=== PATIENT | female | born 1975 | race Caucasian/White ===

== ENCOUNTER 2023-10-31 15:25 | Emergency (ER) | payer BC, SELFPAY ==
[2023-10-31 15:31] VITALS: BP 140/103; PULSE 104; RESP 20; TEMP 36.2; O2SAT 100; BMI 23.5
--- NOTE | 2023-10-31 15:37 | CRLHL7_ITS ---
For Patients: As a result of the Century Cures Act, medical imaging exams and procedure reports are released immediately into your electronic medical record. You may view this report before your referring provider. If you have questions, please contact your health care provider. INDICATION: Injury. TECHNIQUE: Three views. FINDINGS: Acute, nondisplaced, non articular fracture distal radial metaphysis. Radiocarpal alignment is anatomic/intact. Mild soft tissue swelling. No acute abnormality of distal ulna. On AP view only, equivocal linear lucency across waist of scaphoid, possible nondisplaced fracture, continued follow-up recommended. CT/MRI recommended if further evaluation is indicated clinically. Dictated by Grzegorz Bergeron MD @ 10/31/2023 4:07:54 PM (Electronically Signed)
[2023-10-31] MEDS: MORPHINE 4 MG/ML INJ IVP (15:47)
--- NOTE | 2023-10-31 16:10 | ED.GENADULT ---
HPI - General Adult General Chief complaint: Extremity Pain/Injury, Upper Stated complaint: broken left wrist Time Seen by Provider: 10/31/23 15:50 History of Present Illness HPI narrative: This 48-year-old female comes in with an injury to her left wrist. She was standing up on a stool to mount balloons for celebration of her 2-year-old grandchild when she lost her balance and fell onto her left outstretched hand. She has pain and swelling of her left wrist. She does not report any other injury. Related Data Previous Rx's Medication Instructions Recorded hydrocodone 5 mg-acetaminophen 325 1 tab PO Q4-6H PRN pain #10 tabs 10/31/23 mg tablet Allergies Allergy/AdvReac Type Severity Reaction Status Date / Time No Known Drug Allergies Allergy Verified 10/31/23 15:33 Review of Systems Status of ROS: Reports: 10 or more systems reviewed and unremarkable except as noted in History and below Narrative: Constitutional: No fevers, no weight gain or loss. Eyes: No discharge. No vision changes. HENT: No congestion, no sore throat, no ear pain. Cardiovascular: No chest pain, no palpitations. Respiratory: No shortness of breath, no wheezes, no cough. Gastrointestinal: No abdominal pain, no vomiting, no diarrhea. Genitourinary: No dysuria, no hematuria. Musculoskeletal: Left wrist injury as described above. Skin: No rashes, no pruritis. Neurological: No dizziness, weakness, sensory change, speech change. Endo/Heme/Allergies: No bruising or bleeding. No polydipsia. Pysch: no suicidality, no anxiety, no insomnia. All other systems reviewed and are negative. Exam Narrative: Exam Narrative: Constitutional: Well-developed, well-nourished, no acute distress. HEENT: Normocephalic, atraumatic. Neck: Normal range of motion. Nontender. Supple. Heart: Intact distal pulses. Lungs: No chest discomfort. No wheezes, rhonchi, or rales. Abdomen: Nontender. Back: Normal range of motion. Extremities: Diffuse swelling of the left wrist. Fingers have normal sensation and range of motion. Skin: Intact. No rash. Warm. No erythema or pallor. Neurologic: No altered sensation. No weakness. Alert and oriented. Psychiatric: No suicidality. No anxiety or depression. No insomnia. Nursing notes and vitals signs are reviewed. Const: Vital Signs, click to edit/add: Vital Signs - 24 hr 10/31/23 15:31 Temperature 97.1 F L Pulse Rate [Pulse Oximeter] 104 H Respiratory Rate 20 Blood Pressure [Ri ght Upper Arm] 140/103 H Pulse Oximetry 100 Oxygen Delivery Me thod Room Air Course Vital Signs Vital signs: Initial Vital Signs Temperature 97.1 F L 10/31/23 15:31 Temperature Source Temporal Artery Scan 10/31/23 15:31 Pulse Rate 104 H 10/31/23 15:31 Pulse Rhythm Regular 10/31/23 15:31 Respiratory Rate 20 10/31/23 15:31 Blood Pressure 140/103 H 10/31/23 15:31 Blood Pressure Mean 115 H 10/31/23 15:31 Blood Pressure Position Sitting 10/31/23 15:31 Pulse Oximetry 100 10/31/23 15:31 Oxygen Delivery Method Room Air 10/31/23 15:31 Vital Signs Temperature 97.1 F L 10/31/23 15:31 Pulse Rate 104 H 10/31/23 15:31 Respiratory Rate 20 10/31/23 15:31 Blood Pressure 140/103 H 10/31/23 15:31 Pulse Oximetry 100 10/31/23 15:31 Oxygen Delivery Method Room Air 10/31/23 15:31 Temperature 97.1 F L 10/31/23 15:31 Pulse Rate 104 H 10/31/23 15:31 Respiratory Rate 20 10/31/23 15:31 Blood Pressure 140/103 H 10/31/23 15:31 Pulse Oximetry 100 10/31/23 15:31 Oxygen Delivery Method Room Air 10/31/23 15:31 Medications Administered Medications: Discontinued Medications Generic Name Dose Route Start Last Admin Trade Name Freq PRN Reason Stop Dose Admin Morphine Sulfate 4 mg 10/31/23 15:36 10/31/23 15:47 Morphine 4 Mg/Ml Inj IVP 10/31/23 15:37 4 mg ONCE ONE Administration Medical Decision Making MDM Narrative Medical decision making narrative: This patient comes in with an injury to her left wrist. X-ray imaging does show a nondisplaced fracture of the distal radius. The patient was placed in an Ortho Glass splint and did receive an Instymed prescription for few tablets of [place] and of prescription from her pharmacy for some more. I advised her to follow-up with orthopedic clinic for further evaluation and treatment. Imaging Data XR L Wrist: Radiologist's impression: Acute, nondisplaced, non articular fracture distal radial metaphysis. Radiocarpal alignment is anatomic/intact. Mild soft tissue swelling. No acute abnormality of distal ulna. Discharge Plan Discharge Clinical Impression: Fracture of wrist Patient Disposition: Home w/ Parent or Adult Condition: Stable Additional Instructions: Wear splint and use medication as needed and directed for pain relief. Follow-up with orthopedic clinic. Call [phone] for appointment. Prescriptions: New hydrocodone-acetaminophen 5-325 mg tablet 1 tab PO Q4-6H PRN (Reason: pain) Qty: 10 0RF Follow Up/Referrals: Kelly Stevens MD [Primary Care Provider] - Stand Alone Forms: [employer] Info Instructions
[2023-10-31 16:22] VITALS: O2SAT 99
== END 2023-10-31 16:48 | disposition home or self-care (01) ==
LOC: ED 16:48
PROVIDERS: Emergency Provider Emergency Medicine Emergency Medical Services; PCP Family Medicine
DX: S52.502A Unspecified fracture of the lower end of left radius, initial encounter for closed fracture (principal); W18.30XA Fall on same level, unspecified, initial encounter
CPT/HCPCS: 29125; 73110; 96374; 99283; 99284; J2270

== ENCOUNTER 2023-11-04 07:35 | Day surgery (SDC) | payer BC, SELFPAY ==
[2023-11-04] MEDS: LACTATED RINGERS 1000 ML 1,000 ML 100 ML IV (07:35)
--- OUTSIDE RECORDS SUMMARY | 2023-11-04 07:37 | XMS_ITS | Clinical Summary ---
Author Name Unknown Organization [employer] [facility] Address [place], [place] [address] Care Team Providers Care Front Office Medical Assistant Name Role Phone Kelly Stevens MD Primary Care Provider Allergies No known active allergies Medications Medication Sig Dispensed Refills Start Date End Date Status oxyCODONE (ROXICODONE) 5 mg immediate release tablet Take 5 mg by mouth every 4 hours if needed for Pain. 0 11/01/2023 Active Active Problems Problem Noted Date Diagnosed Date Fracture of wrist 11/03/2023 Heart murmur 11/03/2023 Prediabetes 11/03/2023 Elevated blood pressure read ing without diagnosis of hypertension 11/03/2023 Tobacco user 11/03/2023 Cystic acne 05/26/2013 Unspecified episodic mood disorder 09/02/2007 Obsessive-compulsive disorders 09/02/2007 Esophageal reflux Abnormal Pap smear of cervix Overview: See 07/27/19 visit note:history of abnormal, never follow up for LEEP 07/27/19 NIL/HPV negative Plan:Pap/HPV due 07/2022 Encounters Date Type Department Care Team Description 11/03/2023 10:50 AM VESSEL SCRAPPER HELPER [place] [facility] [place] [address] [place] [address] Michael Baig MD Preoperative Exam (DOS 11/04/23) 11/03/2023 [place] [facility] [place] [address] [place] [address] Michael Baig MD Results 11/03/2023 Travel 10/31/2023 Orders Only [facility] Scanner 1 scan: (1-Ord) NORTH , XR WRIST LT MIN 3V, 10/31/2023 from Last 3 Months Immunizations Name Administration Dates Next Due Influenza A (H1N1), Inactivated 10/23/2009 Influenza, IIV3 (Age >=3 years) 08/25/2013,08/18,08/18/2011 Td (Age >=7 Years) 02/23/2000 Tdap 07/27/2019 Family History Medical History Relation Name Comments Cancer Father lung Diabetes Father Heart Disease Father stents Other Mother COPD Diabetes Paternal Grandmother Relation Name Status Comments Father (Age 55) lung ca Mother Alive Paternal Grandmother Social History Tobacco Use Types Packs/Day Years Used Date Smoking Tobacco: Every Day Cigarettes 0.9 34 Started: 1989 Smokeless Tobacco: Never Tobacco Cessation:Ready to Q uit: No; Counseling Given: No Alcohol Use Standard Drinks/Week Comments Yes 0 (1 standard drink = 0.6 oz pur e alcohol) Rarely Humiliation, Afraid, Rape, and Kick questionnair e Answer Date Recorded Fear of Current or Ex-Partner No Emotionally Abused No 07/27/2019 Physically Abused No 07/27/2019 Sexually Abused No 07/27/2019 PHQ-2 Answer Date Recorded PHQ-2 Score 0 07/27/2019 [facility] [place] [facility] - Occupational Stress Questionnaire Answer Date Recorded Feeling of Stress Not at all 07/27/2019 Exercise Vital Sign Answer Date Recorde d Days of Exercise per Week 3 days 2018 Minutes of Exercise per Session 40 min 07/27/2019 Social Connections Answer Date Recorded Frequency of Communication with Friends and Fami ly Not on file 11/03/2023 Financial Resource Strain Answer Date R ecorded Difficulty of Paying Living Expenses Not on file 10/25/2021 Difficulty of Paying Living Expenses Not on file 10/25/2021 Sex and Gender Information Value Date Recorded Sex Assigned at Not on file Gender Identity Not on file Sexual Orientation Not on file Obstetrics History Para Term AB IAB SAB Ectopic Multiple Livin g Live Births 5 5 5 5 Date Outcome GA Total Labor Labor/2nd/3rd Weight Sex Delivery Anes PTL Faye A1 A5 Name Cl in Term Term Term Term Term Last Filed Vital Signs Vital Sign Reading Time Taken Comments Blood Pressure 138/82 11/03/2023 11:07 AM VESSEL SCRAPPER HELPER Pulse 70 11/03/2023 11:07 AM VESSEL SCRAPPER HELPER Temperature 36.7 ??C (98 ??F) 11/03/2023 11:07 AM VESSEL SCRAPPER HELPER Respiratory Rate 16 11/19/2018 9:45 AM VESSEL SCRAPPER HELPER Oxygen Saturation 97% 11/03/2023 11:07 AM VESSEL SCRAPPER HELPER Inhaled Oxygen Concentration - - Weight 91.2 kg (201 lb) 11/03/2023 11:07 AM VESSEL SCRAPPER HELPER Height 168.9 cm (5' 6.5) 11/03/2023 11:07 AM CS T Body Mass Index 31.96 11/03/2023 11:07 AM VESSEL SCRAPPER HELPER Plan of Treatment Health Maintenance Due Date Last Done Comments COVID-19 vaccine series (#1) 04/13/1975 Pneumococcal series for age 6-64 (1 of 2 - PCV) 1980 HIV for age 15-65 1989 Hepatitis C screening for ag e 18-79 1992 Colonoscopy through age 75 2019 Mammogram for age 45-75 2019 Depression screening for age 12+ 07/27/2020 07/27/20 19 Pap test for age 21-65 07/27/2022 07/27/2019, 2018 Influenza for age 9-49 06/25/2023 3, 08/18/2012, 08/18/2011, Additional history exists Lipids for age 45-75 07/27/2024 07/27/2019, 11/21/2013, 10/23/2013, Additional history exists BMI (ht and wt on same day) for age 18+ 11/03/2024 11/03/2023, 07/27/2019, 11/19/2018, Additional history exists Tetanus booster 07/27/2029 07/27/2019, 02/23/2000 Tdap Completed 07/27/2019 Procedures Procedure Name Priority Date/Time Associated Diagnosis Comments CBC WITH AUTO DIFFERENTIAL Routine 11/03/2023 11:45 AM VESSEL SCRAPPER HELPER Preop examination HEMOGLOBIN A1C SCREENING Routine 11/03/2023 11:45 AM VESSEL SCRAPPER HELPER Prediabetes BASIC METABOLIC PANEL Routine 11/03/2023 11:45 AM VESSEL SCRAPPER HELPER Preop examination CBC WITH AUTO DIFFERENTIAL Routine 11/03/2023 11:45 AM VESSEL SCRAPPER HELPER Preop examination SCAN-RADIOLOGY REPORT 10/31/2023 12:00 AM VESSEL SCRAPPER HELPER from Last 3 Months Results * CBC WITH AUTO DIFFERENTIAL (11/03/2023 11:45 AM VESSEL SCRAPPER HELPER) WHITE BLOOD COUNT 8.3 4.5 - 11.0 thou/cu mm 11/03/2023 12:15 PM VESSEL SCRAPPER HELPER [facility]LOOD [place] 4.81 4.00 - 5.20 mil/cu mm 11/03/2023 12:[address] [facility] HEMOGLOBIN 14.8 12.0 - 16.0 g/dL 11/03/2023 12:[address] [facility] HEMATOCRIT 46.0 33.0 - 51.0 % 11/03/2023 12:[address] [facility] MCV 96 80 - 100 fL 11/03/2023 12:[address] [facility] MCH 30.8 26.0 - 34.0 pg 11/03/2023 12:[address] [facility] MCHC 32.2 32.0 - 36.0 g/dL 11/03/2023 12:[address] [facility] RDW 14.1 11.5 - 15.5 % 11/03/2023 12:[address] [facility] PLATELET COUNT 212 140 - 440 thou/cu mm 11/03/2023 12:[address] [facility] MPV 9.2 6.5 - 11.0 fL 11/03/2023 12:[address] [facility] % NEUT 58.2 % 11/03/2023 12:[address] [facility] % LYMPH 33.0 % 11/03/2023 12:[address] [facility] % MONO 7.1 % 11/03/2023 12:[address] [facility] % EOS 1.1 % 11/03/2023 12:[address] [facility] % BASO 0.6 % 11/03/2023 12:15 PM VESSEL SCRAPPER HELPER [facility] ABSOLUTE NEUTROPHILS 4.9 1.7 - 7.0 thou/cu mm 11/03/2023 12:15 PM VESSEL SCRAPPER HELPER [facility] ABSOLUTE LYMPHOCYTES 2.8 0.9 - 2.9 thou/cu mm 11/03/2023 12:15 PM VESSEL SCRAPPER HELPER [facility] ABSOLUTE MONOCYTES 0.6 <0.9 thou/cu mm 11/03/2023 12:15 PM VESSEL SCRAPPER HELPER [facility] ABSOLUTE EOSINOPHILS 0.1 <0.5 thou/cu mm 11/03/2023 12:15 PM VESSEL SCRAPPER HELPER [facility] ABSOLUTE BASOPHILS 0.1 <0.3 thou/cu mm 11/03/2023 12:15 PM [facility]ESSEL SCRAPPER HELPER [facility] Blood BLOOD SPECIMEN / Unknown Venipuncture / Unknown 11/03/2023 11:45 AM VESSEL SCRAPPER HELPER 11/03/2023 11:45 AM VESSEL SCRAPPER HELPER Michael Baig MD HEMATOLOGY Performing Organization Address City/State/[facility] Co de Phone Number [facility] [address] [place] [address], * HEMOGLOBIN A1C SCREENING (11/03/2023 11:45 AM VESSEL SCRAPPER HELPER) HEMOGLOBIN A1C SCREENING 6.1 <=6.4 % 11/03/2023 5:05 PM VESSEL SCRAPPER HELPER [facility] Blood BLOOD SPECIMEN / Unknown Venipuncture / Unknown 11/03/2023 11:45 AM VESSEL SCRAPPER HELPER 11/03/2023 11:45 AM VESSEL SCRAPPER HELPER Narrative [facility] - 11/03/2023 5:05 PM VESSEL SCRAPPER HELPER ? (<5.7%) ?Normal ? (5.7% to 6.4%) ? Indicates prediabetes ? (>=6.5%) ? Confirms diabetes Falsely low levels may be seen with: Recent Transfusion, Recent Significant Blood Loss, Hemolytic Diseases, or Falsely elevated levels may be seen with: Untreated Anemias, Splenectomy Michael Baig MD CHEMISTRY [facility] [address] [place] [address], * (ABNORMAL) BASIC METABOLIC PANEL (11/03/2023 11:45 AM VESSEL SCRAPPER HELPER) SODIUM 141 136 - 145 mmol/L 11/03/2023 3:55 PM [facility] POTASSIUM 4.6 3.5 - 5.1 mmol/L 11/03/2023 3:55 PM [facility] CHLORIDE 105 98 - 107 mmol/L 11/03/2023 3:[address] [facility] CO2,TOTAL 27 22 - 29 mmol/L 11/03/2023 3:55 PM [facility] ANION GAP 9 5 - 18 11/03/2023 3:55 PM [facility] GLUCOSE 131(H) 70 - 99 mg/dL 11/03/2023 3:55 PM [facility] CALCIUM 9.5 8.6 - 10.0 mg/dL 11/03/2023 3:55 PM [facility] BUN 12 6 - 20 mg/dL 11/03/2023 3:[address] [facility] CREATININE 0.95(H) 0.50 - 0.90 mg/dL 11/03/2023 3:55 PM [facility] BUN/CREAT RATIO 13 10 - 20 3:55 PM [facility] eGFR 74(L) >90 mL/min/1.7 3m2 11/03/2023 3:55 PM [facility] Comment:As of 2022, eG FR is calculated by the CKD-EPI creatinine equation without race adjustment. ??eGFR can be influenced by muscle mass, exercise, and diet. ??The reported eGFR is an estimation only and is only applicable if the renal function is stable. Blood BLOOD SPECIMEN / Unknown Venipuncture / Unknown 11/03/2023 11:45 AM VESSEL SCRAPPER HELPER 11/03/2023 11:45 AM VESSEL SCRAPPER HELPER Michael Baig MD CHEMISTRY [facility] [address] [place] [address], [place] * SCAN-RADIOLOGY REPORT (10/31/2023 12:00 AM VESSEL SCRAPPER HELPER) Anatomical Region Laterality Modality Other Scanner OTHER from Last 3 Months Care Teams Front Office Medical Assistant Relationship Specialty Start Date End Date Kelly Stevens MD [address] [place] [address] PCP - General Family Practice 06/27/13
--- OUTSIDE RECORDS SUMMARY | 2023-11-04 07:37 | XMS_ITS | Data Portability ---
Author Name Unknown Address [address] [place] [address] Phone [phone] Organization [facility] Address [address] [facility] [address] [place] [address] Care Team Providers Care Hedis Abstractor Name Role Phone JEFSARBJIT ROMEROISTIN Primary Care Provider [phone] Assessment Encounter Date Assessment Date Assessment LastModified by Organization Details LastModified Time 01/21/2021 01/21/2021 45 year old female with gross hematuria. [email or web address] Not available 01/20/2021 09:10:18 Plan of Treatment Reminders Order Date Submit Date Provider Last Modified By Organization Details Last Modified Time Details Appointments None recorded. Lab urinalysis , dipstick 2020 021 [facility], [address], [address], [place], [address], 17:16:52 cytology, urine 2020 021 [facility], [address], [address], [place], [address], 13:33:45 Referral None recorded. Procedures None recorded. Surgeries None recorded. Imaging CT, urogram - PLEASE CONTACT PATIENT TO SCHEDULE 2020 021 [facility], [address], [place], [address], 15:11:40 Medication Orders None recorded. Patient TargetsNo targets recorded. Patient InstructionsNo instructions recorded. Reason for Referral Newspaper Correspondent Referral for Bl ood in urine Please call pt to schedule. Thank you! Referring Physician: Rodo Sutton, Urology, Encounter Date: 03/04/2021 Results Created Date Observation Date Name Description Value Unit Range Abnormal Flag LastModifiedBy Organization Detail LastModifiedTime 01/22/20 21 01/21/2021 urina lysis , dipst ick color -advantus yellow yellow Not Available [facility] [address] [place] [address] [address], [place], [address], 01/21/2021 17:16:52 01/22/20 21 01/21/2021 urina lysis , dipst ick appearance -advantus clear clear Not Available [facility] [address] [place] [address] [address], [place], [address], 01/21/2021 17:16:52 01/22/20 21 01/21/2021 urina lysis , dipst ick glucose -advantus negati ve mg/dL negati ve Not Available [facility] [address] [place] [address] [address], [place], [address], 01/21/2021 17:16:52 01/22/20 21 01/21/2021 urina lysis , dipst ick bilirubin -advantus negati ve negati ve Not Available [facility] [address] [place] [address] [address], [place], [address], 01/21/2021 17:16:52 01/22/20 21 01/21/2021 urina lysis , dipst ick ketones -advantus negati ve mg/dL negati ve Not Available [facility] [address] [place] [address] [address], [place], [address], 01/21/2021 17:16:52 01/22/20 21 01/21/2021 urina lysis , dipst ick sp. gravity -advantus <=1.00 5 1.010- 1.025 Not Available [facility] [address] [place] [address] [address], [place], [address], 01/21/2021 17:16:52 01/22/20 21 01/21/2021 urina lysis , dipst ick pH -advantus 6.5 5.0-8. 0 Not Available [facility] [address] [place] [address] [address], [place], [address], 01/21/2021 17:16:52 01/22/20 21 01/21/2021 urina lysis , dipst ick protein -advantus negati ve mg/dL negati ve Not Available [facility] [address] [place] [address] [address], [place], [address], 01/21/2021 17:16:52 01/22/20 21 01/21/2021 urina lysis , dipst ick urobilinogen -advantus 0.2 normal Not Available [facility] [address] [place] [address] [address], [place], [address], 01/21/2021 17:16:52 01/22/20 21 01/21/2021 urina lysis , dipst ick nitrites -advantus negati ve negati ve Not Available [facility] [address] [place] [address] [address], [place], [address], 01/21/2021 17:16:52 01/22/20 21 01/21/2021 urina lysis , dipst ick blood -advantus large negati ve abnormal Not Available [facility] [address] [place] [address] [address], [place], [address], 01/21/2021 17:16:52 01/22/20 21 01/21/2021 urina lysis , dipst ick leukocytes -advantus negati ve negati ve Not Available [facility] [address] [place] [address] [address], [place], [address], 01/21/2021 17:16:52 01/22/20 21 01/21/2021 urina lysis , dipst ick performed by toua T Not Available [facility] [address] [facility] [address], [place], [address], 01/21/2021 17:16:52 01/22/20 21 01/21/2021 urina lysis , dipst ick total urine volume (mL) 60 /mL Not Available [facility] [address] [facility] [address], [place], [address], 01/21/2021 17:16:52 01/22/20 21 01/21/2021 urina lysis , micro scopi c U-WBC 0 - 2 [hpf] 0 - 2 Not Available [facility] [place] [address] [facility] [address], [place], [address], 01/21/2021 17:17:14 01/22/20 21 01/21/2021 urina lysis , micro scopi c U-RBC 0 - 2 [hpf] 0 - 2 Not Available [facility] [place] [address] [facility] [address], [place], [address], 01/21/2021 17:17:14 01/22/20 21 01/21/2021 urina lysis , micro scopi c bacteria small [hpf] negati ve abnormal Not Available [facility] [address] [place] [address] [address], [place], [address], 01/21/2021 17:17:14 01/22/20 21 01/21/2021 urina lysis , micro scopi c squamous epi negati ve /lpf negati ve,sma ll Not Available [facility] [address] [place] [address] [address], [place], [address], 01/21/2021 17:17:14 01/22/20 21 01/21/2021 cytol ogy, urine apresult AP result s Not Available [facility] [address] [place] [address] [address], [place], [address], 01/23/2021 13:33:45 09/29/20 21 03/03/2021 CT, urogr am No observ ation record ed. [address] [facility] [address], [place], [address], 09/29/2021 15:11:49 Result Notes None recorded. Procedures Surgical History Date Name Laterality Status Provider Name and Address Organization Details Recorded Time 01/21/2021 Cystoscopy- female completed Rodo Sutton MD [address] [facility], [place], [address], [facility] 01/21/2021 10:26:47 Imaging Results Imaging Date Name Status LastModified by Organiz ation Details LastModified Time 03/03/2021 CT, urogram completed [address] [facility] [address], [place], [address], 09/29/2021 15:11:49 Procedure Notes None recorded. Medical Equipment None Reported. Allergies No known drug allergies Medications Name Sig Start Date Stop Date Status Note LastModified by Organization Details LastModified Time sulfamethoxazole 800 mg-trimethoprim 160 mg tablet TAKE 1 TABLET BY MOUTH TWICE DAILY UNTIL ALL TAKEN active Not Available Not Available No t Available nitrofurantoin monohydrate/macr ocrystals 100 mg capsule active Not Available Not Available Not Available Lexie active Not Available Not Avail able Not Available Probiotic active Not Available Not Veronika ilable Not Available Vitals Date Recorded Body height Body mass index (BMI) Body weight Provider Name and Address Organization Details Last Updated DateTime 01/21/2021 167.64 cm 23.4 kg/m2 02730.89 g Candida coe [facility] 01/21/2021 09:59:55 Social History Question Answer Notes LastModified by Organizat ion Details LastModified Time Tobacco Smoking Status Never Smoker Candida coe [facility] 01/21/2021 10:00:47 What Is Your Level Of Alcohol Consumption? Occasional Information not available 01/21/2021 What Is Your Level Of Caffeine Consumption? Heavy Information not available 01/21/2021 How Much Tobacco Do You Chew? None Information not available 01/21/2021 Do You Or Have You Ever Used E-cigarettes Or Vape? Current User Of Electronic Cigarettes Information not available 01/21/2021 [facility] Information no t available 01/21/2021 Preferred Language Bolivian Information not available 01/21/2021 What Was The Date Of Your Most Recent Tobacco Screening? 01/21/2021 Information not available 01/21/2021 Do You Or Have You Ever Used Smokeless Tobacco? Current Snuff User Information not available 01/21/2021 How Many Years Have You Smoked Tobacco? 20 Information not available 01/21/2021 Sex: Female Functional Status None recorded. Mental Status None recorded. Family History Nothing Reported. Medical History No medical history recorded. Gynecological History Statement/Question Response Sexually Active? Y Pain with intercourse N Obstetrics History GPAL:G 0 P 0 0 0 0 Past Encounters Encounter ID Performer Location Encounter Start Date Encounter Closed Date Diagnosis/Indication [id number] Rodo Sutton MD [facility] [address] [place] [address] 01/21/2021 08:15:20 01/21/2021 10:49:45 [place] hematuria Health Concerns Section Related Observation LastModified by Organization Detai ls LastModified Time None Recorded Concern Status LastModified by Organization Details LastModified Time None Recorded Advance Directives Directive None Recorded Payers Encounter Date Sequence Insurance Name Policy Number Policy Myers Covered Member ID Myers Member ID Guarantor Name 01/21/2021 1 [place] Ben Latham [id number] Tu Latham Notes Date Note Type Note Provider Name and Address Organization Details Recorded Time 01/21/2021 text/html HPI Notes: This is a 45 year old female who is referred by Dr. Stevens for the evaluation and management of gross hematuria. In July of 2020 she first noted irritative voiding symptoms and dark urine. She presented to her local pharmacy and a urine analysis was suggestive of infection. She was started on antibiotic therapy with some improvement in symptoms. Culture returned negative. She had progressive issues with dark urine (brown/tea colored) and her symptoms again returned. She presented to the [facility] Emergency Room on 01/05/2021 with right flank pain and irritative voiding symptoms. A CT of the abdomen and pelvis without IV or oral contrast was performed which was unremarkable and no stones or other genitourinary pathology was noted. Her urine culture from this visit returned positive for E. coli and she was treated with 7 days of antibiotic therapy. Her symptoms improved after this and her urine cleared up. Her father had a history of bladder cancer treated with removal. He due to lung cancer, not issues related to the bladder. She is a current smoker. Smokes 1 pack per day for 30 years. Rodo Sutton MD [address] [facility], [place], [address], [facility] 01/21/2021 10:28:20 OBGyn Episode No OBEpisode recorded.
[2023-11-04 07:59] VITALS: BMI 32.3
[2023-11-04 08:21] VITALS: BP 146/76; PULSE 81; RESP 18; TEMP 36.9; O2SAT 97
[2023-11-04] MEDS: SODIUM CHLORIDE 0.9 % (FLUSH) 10 ML SYRINGE IVF (08:23)
[2023-11-04 08:25] LABS: Ur HCG Qualitative* Negative (Negative)
[2023-11-04] MEDS: fentaNYL 100 MCG/2 ML inj IVP (08:28)
[2023-11-04] MEDS: MIDAZOLAM HCL 1 MG/ML inj IVP (08:28)
[2023-11-04 08:46] VITALS: BP 121/75; PULSE 70; RESP 18; O2SAT 97
[2023-11-04 09:00] VITALS: BP 106/66; PULSE 65; RESP 18; O2SAT 95
--- NOTE | 2023-11-04 09:00 | CRLHL7_ITS ---
For Patients: As a result of the Cures Act, medical imaging exams and procedure reports are released immediately into your electronic medical record. You may view this report before your referring provider. If you have questions, please contact your health care provider. INDICATION: Left wrist fracture ORIF TECHNIQUE: Distal left radial metaphysis fracture ORIF performed by Dr. Patel. Three C-arm spot images were obtained. Fluoroscopy time was 37.2 seconds. COMPARISON: 11/01/2023 FINDINGS: C-arm fluoroscopy for distal left radial metaphysis fracture ORIF. Hardware and fracture fragments appear to be in good alignment on images provided. IMPRESSION: C-arm fluoroscopy for distal left radial metaphysis fracture ORIF. Dictated by Evan Carmona MD @ 11/05/2023 8:14:40 AM (Electronically Signed)
[2023-11-04] MEDS: CEFAZOLIN 2 GM INJ IVP (09:30)
--- NOTE | 2023-11-04 10:34 | W.PM.NB ---
Nerve Block Nerve Block Time Seen by Provider: 08:18 Date Seen: 11/04/23 Type of block requested by surgeon for post-operative analgesia: axillary Side: left Time out performed: Yes Verification of patient name: Yes Verification of date of : Yes Site marking: site marked Name of person performing procedure: Daylin Continuous monitoring Was continuous monitoring of O2 sat, B/P, court recording monitor, recorded every 15 minutes?: Yes Procedure Checklist: sterile prep, needles and gloves Ultrasound guided. Images saved: Yes Medications given in 5ml increments after negative aspiration: Ropivicaine %: 0.5 mL: 30 Needle gauge: 22 Patient tolerated procedure well: Yes Additional comments: Needle noted adjacent to nerve Block Charges Block Charge (with Pro Fee): Brachial Plexus Use of Ultrasound Machine for Block: Yes- US Guidance/pain block
--- NOTE | 2023-11-04 10:34 | PM.ORPRC ---
Procedure Note Date of procedure: 11/04/23 Procedure: PREOPERATIVE DIAGNOSIS: Angulated 2+ part intra-articular left upper extremity distal radius fracture, left upper extremity carpal tunnel syndrome POSTOPERATIVE DIAGNOSIS: Angulated 2+ part intra-articular left upper extremity distal radius fracture, left upper extremity carpal tunnel syndrome NAME OF OPERATION: Open reduction internal fixation, carpal tunnel release SURGEON: Malvin Patel MD DIPLOMA MAKER: Irma Lr PA-C ANESTHESIA: Supraclavicular block plus monitored anesthesia care ESTIMATED BLOOD LOSS: 0 mL COMPLICATIONS: None SPECIMENS: None DRAINS: None PREOPERATIVE ANTIBIOTICS: Ancef 2 grams INDICATIONS: The patient is a 48-year-old who fell landing on their upper extremity sustaining the above injury. Given the amount of angulation, reduction and plate fixation were recommended. Additionally, she has symptoms consistent with carpal tunnel syndrome. Carpal tunnel release was recommended. The risks, benefits and expected outcomes were discussed in detail. These included but were not limited to: Infection, bleeding, injury to blood vessel or nerve, venous thromboembolism. All questions were answered to their satisfaction. Use of an project construction assistant manager was necessary throughout the case for patient positioning and safety, maintenance of the reduction, surgical site dressing and splint application. PROCEDURE: A supraclavicular block was placed by Anesthesia. The patient was placed supine on the operating room table. IV sedation was administered. The reduction was obtained with longitudinal traction and volar force on the distal fragment, held by the project construction assistant manager. The image intensifier was used to confirm an excellent reduction. The extremity was prepped and draped in the usual sterile fashion. The limb was exsanguinated with the Sai bandage. The pneumatic tourniquet was inflated to 250 mm of mercury. A longitudinal incision was made over the flexor carpi radialis. Subcutaneous dissection was taken sharply through the FCR sheath. The FCR was retracted radially. Sharp dissection was carried through the floor of the FCR sheath. The flexor pollicis longus was retracted ulnarly. Sharp dissection was carried through the radial border of the pronator quadratus which was elevated ulnarly, exposing the fracture site. The project construction assistant manager held retractors to expose the fracture. The volar cortex of the fracture is anatomically aligned. We placed a Synthes standard, 3 hole volar locking plate over the volar cortex. It was provisionally held with a K-wire tack x 2, while the project construction assistant manager held the reduction. Its placement was confirmed with the image intensifier. We placed a cortical screw in the slot. We placed a locking screw in the shaft. We then filled the distal screw holes with smooth locking pegs using the image intensifier to confirm their extra-articular placement. Finally, a 2nd locking screw was placed in the shaft fragment. This construct was imaged in multiple views and was felt to be well placed with an anatomic reduction and well placed implants. Attention was then turned to the carpal tunnel release. A longitudinal incision was made at the base of the palm, centered over the radial border of the ring finger. Subcutaneous dissection was sharply taken through the palmar fascia to the transverse carpal ligament. The ligament was divided in line with the incision. Tenotomy and Metzenbaum scissors were used for distal and proximal dissection for a wide decompression of the carpal tunnel. The nerve appears normal. The wounds were irrigated normal saline. The carpal tunnel release incision was closed with a 3-0 nylon in a simple interrupted fashion. The wrist incision subcutaneous tissues were reapproximated with a 2-0 Vicryl, skin with a running 3-0 Monocryl in a subcuticular fashion. Glue was used to seal the skin. A dry dressing and short-arm dorsal volar splint was applied. These steps were all completed by the project construction assistant manager. The tourniquet was released, sponge and needle counts were correct x2. The patient tolerated the procedure well, there were no apparent complications. They were taken to the postanesthesia care unit in satisfactory condition. PLAN: The patient will be discharged home. They will work on elevation of the hand and active range of motion of the fingers. They will follow up next week in the office for a wound check with a PA, oblique, lateral and fossa lateral view of the wrist out of the splint prior to being seen in preparation for early active motion with Orthoplast splint protection.
--- NOTE | 2023-11-04 10:56 | W.ANESCHARGE ---
Anesthesia Charges Start Date/Time Anesthesia Start Date: 11/04/23 Anesthesia Start Time: 09:22 Stop Date/Time Anesthesia Stop Date: 11/04/23 Anesthesia Stop Time: 11:11
[2023-11-04 11:12] VITALS: BP 127/82; PULSE 79; RESP 18; TEMP 36.4; O2SAT 95
[2023-11-04 11:30] VITALS: BP 124/80; PULSE 79; RESP 18; O2SAT 95
--- NOTE | 2023-11-05 07:43 | SUR.PREOP ---
TIME?OUT:?0730 PT/RN/MDA?VERIFICATION?OF?SURGICAL?SITE,?PROCEDURE,?AND?CONSENT OBTAINED?PRIOR?TO?INVASIVE?PROCEDURE.left wrist time out done preop forgot to chart yesterday 11/04/23 mya [email or web address]
== END 2023-11-04 11:44 | disposition home or self-care (01) ==
PROVIDERS: Anesthesiology; PCP Family Medicine; Visit Provider Orthopaedic Surgery
PROC: (CPT 25575; principal; 2023-11-04 09:00)
PROC: (CPT 64721; 2023-11-04 09:00)
DX: S52.572A Other intraarticular fracture of lower end of left radius, initial encounter for closed fracture (principal); G56.02 Carpal tunnel syndrome, left upper limb; G89.18 Other acute postprocedural pain
CPT/HCPCS: 25608; 64721; 01810; 01830; 64415; 73110; 76000; 76942; 81025; A4580; C1713; J0690; J1100; J2250; J2405; J2704; J2795; J3010; J7120

== ENCOUNTER 2024-02-08 07:30 | Outpatient (RCR) | payer BC, SELFPAY | END 2024-02-08 15:35 | disposition home or self-care (01) | PROVIDERS: PCP Family Medicine; Visit Provider Physician Assistant | DX: Z98.890 Other specified postprocedural states (principal); R52 Pain, unspecified; R53.1 Weakness; M25.632 Stiffness of left wrist, not elsewhere classified; Z51.89 Encounter for other specified aftercare | CPT/HCPCS: 97110; 97140; 97165; 97530; L3906; X5282 ==

== ENCOUNTER 2024-06-07 15:59 | Emergency (ER) | payer OTHER, SELFPAY ==
[2024-06-07 16:08] VITALS: BP 133/84; PULSE 65; RESP 18; TEMP 36.3; O2SAT 97; BMI 21.9
[2024-06-07 16:51] LABS: Appearance Urine Clear (Clear); Bilirubin Urine Negative (Negative); Blood Urine Trace-intact (Negative); Color Urine Yellow (Yellow); Glucose Urine Negative (Negative); Ketones Urine Negative (Negative); Leukocyte Esterase Urine Negative (Negative); Nitrite Urine Negative (Negative); Protein Urine Negative (Negative); Urobilinogen Urine 0.2 (0.2-1.0)
--- OUTSIDE RECORDS SUMMARY | 2024-06-07 16:56 | XMS_ITS | Clinical Summary ---
Author Organization [facility] Address [place], [place] [address] Care Team Providers Care Relish Blender Name Role Phone Kelly Stevens MD Primary Care Provider Allergies No known active allergies Medications Medication Sig Dispensed Refills Start Date End Date Status oxyCODONE (ROXICODONE) 5 mg immediate release tablet Take 5 mg by mouth every 4 hours if needed for Pain. 11/01/2023 Active Active Problems Problem Noted Date [...] LEEP 07/27/19 NIL/HPV negative Plan:Pap/HPV due 07/2022 Immunizations Name Administration Dates Next Due Influenza [...] Date Smoking Tobacco: Every Day Cigarettes 0.9 34.6 Started: 1989 Smokeless Tobacco: Never Tobacco Cessation:Ready [...] Answer Date Recorded PHQ-2 Score 0 07/27/2019 [facility] [place] of Occupat ional Health - Occupational Stress [...] Outcome GA Total Labor Labor/2nd/3rd Weight Sex Type Anes PTL Faye A1 A5 Name Clin Term Term Term Term Term Last Filed Vital Signs Vital Sign Reading Time Taken Comments Blood Pressure 138/82 11/03/2023 11:07 AM MESS ATTENDANT Pulse 70 11/03/2023 11:07 AM MESS ATTENDANT Temperature 36.7 ??C (98 ??F) 11/03/2023 11:07 AM MESS ATTENDANT Respiratory Rate 16 11/19/2018 9:45 AM MESS ATTENDANT Oxygen Saturation 97% 11/03/2023 11:07 AM MESS ATTENDANT Inhaled Oxygen Concentration - - Weight 91.2 kg (201 lb) 11/03/2023 11:07 AM MESS ATTENDANT Height 168.9 cm (5' 6.5) 11/03/2023 11:07 AM CS T Body Mass Index 31.96 11/03/2023 11:07 AM MESS ATTENDANT Plan of Treatment Health Maintenance Due Date Last Done Comments Pneumococcal series for age 6-64 (1 of 2 - PCV) 1980 HIV for age 15-65 1989 Hepatitis C screening for ag e 18-79 1992 Colonoscopy through age 75 2019 Mammogram for age 45-75 2019 Depression screening for age 12+ 07/27/2020 07/27/20 19 Pap test for age 21-65 07/27/2022 07/27/2019, 2018 COVID-19 vaccine series (2022-24 season) 2023 Influenza for age 9-49 06/25/2024 3, 08/18/2012, 08/18/2011, Additional history exists Lipids for age 45-75 07/27/2024 07/27/2019, 11/21/2013, 10/23/2013, Additional history exists BMI (ht and wt on same day) for age 18+ 11/03/2024 11/03/2023, 07/27/2019, 11/19/2018, Additional history exists Tetanus booster 07/27/2029 07/27/2019, 02/23/2000 Tdap Completed 07/27/2019 Procedures Procedure Name Priority Date/Time Associated Diagnosis Comments LIPID PANEL W REFLEX MEASURED LDL Routine 07/27/2019 12:42 PM CDT Lipid screening IN ROOM DINING SERVER THIN PREP PAP SCREEN IMAGED Routine 07/27/2019 11:50 AM CDT Screening for malignant neoplasm of cervix from Last 3 Months or Most Recently Relevant to Health Maintenance Results * (ABNORMAL) LIPID PANEL W REFLEX MEASURED LDL (07/27/2019 12:42 PM CDT) CHOLESTEROL,TOTAL 199 100 - 199 mg/dL 07/27/2019 9:25 PM CDT [facility] TRIGLYCERIDES 127 <150 mg/dL 07/27/2019 9:25 PM CDT [facility] HDL CHOLESTEROL 42 >40 mg/dL 9 9:25 PM CDT [facility] NON-HDL CHOLESTEROL 157(H) <145 mg/dl 07/27/2019 9:25 PM CDT [facility] CHOL/HDL RATIO 4.74(H) <4.50 07/27/2019 9:25 PM CDT [facility] LDL CHOLESTEROL 132(H) <=130 mg/dL 07/27/2019 9:25 PM CDT [facility] PROVIDER ORDERED STATUS RANDOM 07/27/2019 9:25 PM CDT [facility] Blood BLOOD SPECIMEN / Unknown Venipuncture / Unknown 07/27/2019 12:42 PM CDT 07/27/2019 12:46 PM CDT Kelly Stevens MD CHEMISTRY [facility] [address] [place] [address], * IN ROOM DINING SERVER THIN PREP PAP SCREEN IMAGED [[id number]] (07/27/2019 11:50 AM CDT) Case Report Gynecologic Cytology Report ? Case: [id number] ? Authorizing Provider: ??Kelly Stevens MD Collected: ? 07/27/2019 1150 ? Ordering Location: ? [facility] ?? Received: ?07/27/2019 1205 ? Clinic ? First Screen: ?Brunilda Torres ? Rescreen: ?Gricel Castañeda ? Specimen: ?IN ROOM DINING SERVER ThinPrep Vial Screening, Cervical ? 08/08/2019 11:39 AM CDT [facility] INTERPRETATION/ RESULT NEGATIVE FOR INTRAEPITHELIAL LESION OR MALIGNANCY (NIL) (none) 08/08/2019 11:39 AM CDT [facility] IMEN ADEQUACY Satisfactory for evaluation Endocervical component present 08/08/2019 11:39 AM CDT [facility] HPV REQUEST HPV and PAP 08/08/2019 11:39 AM CDT [facility] Date of LMP n/a 08/08/2019 11:39 AM CDT [facility] Last Pap Date yrs ago 08/08/2019 11:39 AM CDT [facility] Last Pap Result First Pap/Unknown 11:39 AM CDT [facility] Abnormal Pap or [place] Bx in last 5 years Yes 08/08/2019 11:39 AM CDT [facility] Menstrual Status Ablation 08/08/2019 11:39 AM CDT [facility] [place] Bx Done Today No 08/08/2019 11:39 AM CDT [facility] Additional Information None given 08/08/2019 11:39 AM CDT [facility] Automated Review Successful 08/08/2019 11:39 AM T [facility] Comment:Specimen processed s uccessfully by automated otolaryngology nurse device, ThinPrep Imaging System, [employer] ANCILLARY TESTING IN ROOM DINING SERVER HPV Ordered, Please see separate report 08/08/2019 11:39 AM CDT [facility] Note The pap test is a screening technique, not a diagnostic procedure. ??It is used primarily to screen for squamous cancers and precursor lesions. ??Published studies have shown that it is subject to both false negative and false positive results. ??The pap test should not be used as the sole means to diagnose or exclude pre-malignant and malignant lesions. Cytology is screened and interpreted at [facility] - [address], [place] [address] and [facility] - [address]; [place] [address] and [facility] - [address]; [place] [address] and [facility] [address]; [place] [address] 08/08/2019 11:39 AM T [facility] Other (Cervical) Non-Blood / Unknown 07/27/2019 11:50 AM CDT 07/27/2019 12:05 PM CDT Kelly Stevens MD PATHOLOGY/CYTOL OGY [facility] [address] [place] [address], from Last 3 Months or Most Recently Relevant to Health Maintenance Care Teams Relish Blender Relationship Specialty Start Date End Date Kelly Stevens MD [address] [place] [address] PCP - General Family Practice 06/27/13
--- OUTSIDE RECORDS SUMMARY | 2024-06-07 16:57 | XMS_ITS | Data Portability ---
Author Organization [facility], [facility] Address [address] [place] [address] Care Team Providers Care Fabric Designer Name Role Phone JEFMANNIE ROMERO Primary Care Provider Assessment Encounter Date Assessment Date Assessment LastModified by Organization Details LastModified Time 01/21/2021 01/21/2021 45 year old female with gross hematuria. [email or web address] Not available 01/20/2021 09:10:18 Plan of Treatment Reminders Order Date Submit Date Provider Last Modified By Organization Details Last Modified Time Details Appointments None recorded. Lab urinalysis , dipstick 2020 [facility], [address], [place], [address], 17:16:52 cytology, urine 2020 [facility], [address], [place], [address], 13:33:45 Referral None recorded. Procedures None recorded. Surgeries None recorded. Imaging CT, urogram - PLEASE CONTACT PATIENT TO SCHEDULE 2020 [facility], [address] [place], [address], 15:11:40 Medication Orders None recorded. Patient TargetsNo targets recorded. Patient InstructionsNo instructions recorded. Reason for Referral Type Caster Referral for Bl ood in urine Please call pt to schedule. Thank you! Referring Physician: Rodo Sutton, Urology, Encounter Date: 03/04/2021 Results Created Date Observation Date Name Description Value Unit Range Abnormal Flag LastModifiedBy Organization Detail LastModifiedTime 01/22/20 21 01/21/2021 urina lysis , dipst ick color -advantus YELLOW yellow Not Available [facility] [address] [place] [address] [address], [place], [address], 01/21/2021 17:16:52 01/22/20 21 01/21/2021 urina lysis , dipst ick appearance -advantus CLEAR clear Not Available [facility] [address] [place] [address] [address], [place], [address], 01/21/2021 17:16:52 01/22/20 21 01/21/2021 urina lysis , dipst ick glucose -advantus NEGATI VE mg/dL negati ve Not Available [facility] [address] [place] [address] [address], [place], [address], 01/21/2021 17:16:52 01/22/20 21 01/21/2021 urina lysis , dipst ick bilirubin -advantus NEGATI VE negati ve Not Available [facility] [address] [place] [address] [address], [place], [address], 01/21/2021 17:16:52 01/22/20 21 01/21/2021 urina lysis , dipst ick ketones -advantus NEGATI VE mg/dL negati ve Not Available [facility] [address] [place] [address] [address], [place], [address], 01/21/2021 17:16:52 01/22/20 21 01/21/2021 urina lysis , dipst ick sp. gravity -advantus <=1.00 5 1.010- 1.025 Not Available [facility] [address] [place] [address] [address], [place], [address], 01/21/2021 17:16:52 01/22/20 21 01/21/2021 urina lysis , dipst ick pH -advantus 6.5 5.0-8. 0 Not Available [facility] [address] [place] [address] [address], [place], [address], 01/21/2021 17:16:52 01/22/20 21 01/21/2021 urina lysis , dipst ick protein -advantus NEGATI VE mg/dL negati ve Not Available [facility] [address] [place] [address] [address], [place], [address], 01/21/2021 17:16:52 01/22/20 21 01/21/2021 urina lysis , dipst ick urobilinogen -advantus 0.2 normal Not Available [facility] [address] [place] [address], [place], [address], 01/21/2021 17:16:52 01/22/20 21 01/21/2021 urina lysis , dipst ick nitrites -advantus NEGATI VE negati ve Not Available [facility] [address] [place] [address], [place], [address], 01/21/2021 17:16:52 01/22/20 21 01/21/2021 urina lysis , dipst ick blood -advantus LARGE negati ve abnormal Not Available [facility] [address] [place] [address], [place], [address], 01/21/2021 17:16:52 01/22/20 21 01/21/2021 urina lysis , dipst ick leukocytes -advantus NEGATI VE negati ve Not Available [facility] [address] [place] [address], [place], [address], 01/21/2021 17:16:52 01/22/20 21 01/21/2021 urina lysis , dipst ick performed by Bret Dobbs Not Available [facility] [address] [place] [address] [address], [place], [address], 01/21/2021 17:16:52 01/22/20 21 01/21/2021 urina lysis , dipst ick total urine volume (mL) 60 /mL Not Available [facility] [address], [place], [address], 01/21/2021 17:16:52 01/22/20 21 01/21/2021 urina lysis , micro scopi c U-WBC 0 - 2 [hpf] 0 - 2 Not Available [facility] [address], [place], [address], 01/21/2021 17:17:14 01/22/20 21 01/21/2021 urina lysis , micro scopi c U-RBC 0 - 2 [hpf] 0 - 2 Not Available [facility] [address], [place], [address], 01/21/2021 17:17:14 01/22/20 21 01/21/2021 urina lysis , micro scopi c bacteria Small [hpf] negati ve abnormal Not Available [facility] [address] [place] [address] [address], [place], [address], 01/21/2021 17:17:14 01/22/20 21 01/21/2021 urina lysis , micro scopi c squamous epi Negati ve /lpf negati ve,sma ll Not Available [facility] [address] [place] [address] [address], [place], [address], 01/21/2021 17:17:14 01/22/20 21 01/21/2021 cytol ogy, urine apresult AP result s Not Available [facility] [address] [place] [address] [address], [place], [address], 01/23/2021 13:33:45 09/29/20 21 03/03/2021 CT, urogr am No observ ation record ed. [email or web address] [facility] [address], [place], [address], 09/29/2021 15:11:49 Result Notes None recorded. Procedures Surgical History Date Name Laterality Status Provider Name and Address Organization Details Recorded Time 01/21/2021 Cystoscopy- female completed Rodo Sutton MD [address], [place], [address], [facility] 01/21/2021 10:26:47 Imaging Results Imaging Date Name Status LastModified by Organiz ation Details LastModified Time 03/03/2021 CT, urogram completed [email or web address] [facility] [address], [place], [address], 09/29/2021 15:11:49 Procedure Notes None recorded. Medical [...] Updated DateTime 01/21/2021 167.64 cm 23.4 kg/m2 40332.89 g Candiad Duron [facility] 01/21/2021 09:59:55 Social History Question Answer Notes LastModified by Organizat ion Details LastModified Time Tobacco Smoking Status Never Smoker Candida Duron null, [facility] 01/21/2021 10:00:47 What Is Your Level Of Alcohol Consumption? Occasional Information not available 01/21/2021 What Is Your Level Of Caffeine Consumption? Heavy Information not available 01/21/2021 How Much Tobacco Do You Chew? None Information not available 01/21/2021 Do You Or Have You Ever Used E-cigarettes Or Vape? Current User Of Electronic Cigarettes Information not available 01/21/2021 Race White Information no t available 01/21/2021 Preferred Language Citizen Of [place] Information not available 01/21/2021 What Was The Date Of Your Most Recent Tobacco Screening? 01/21/2021 Information not available 01/21/2021 Do You Or Have You Ever Used Smokeless Tobacco? Current Snuff User Information not available 01/21/2021 How Many Years Have You Smoked Tobacco? 20 Information not available 01/21/2021 Sex: Unknown Functional Status None recorded. Mental Status None recorded. Family History Nothing Reported. Medical History No medical history recorded. Gynecological History Statement/Question Response Sexually Active? Y Pain with intercourse N Obstetrics History GPAL:G 0 P 0 0 0 0 Past Encounters Encounter ID Performer Location Encounter Start Date Encounter Closed Date Diagnosis/Indication Diagnosis SNOMED-CT Code [id number] Rodo Sutton MD [facility] [address] [place] [address] 01/21/2021 08:15:20 01/21/2021 10:49:45 Bryan hematuria [id number] Health Concerns Section Related Observation LastModified by Organization Detai ls LastModified Time None Recorded Concern Status LastModified by Organization Details LastModified Time None Recorded Advance Directives Directive None Recorded Payers Encounter Date Sequence Insurance Name Policy Number Policy Myers Covered Member ID Myers Member ID Guarantor Name 01/21/2021 1 [place] Ben Latham [id number] Tu Latham Notes Date Note Type Note [...] symptoms again returned. She presented to the [facility] Emergency Room on 01/05/2021 with right flank [...] day for 30 years. Rodo Sutton MD [address] [place] [address],[facility] [address], [place], [address], [facility] 01/21/2021 10:28:20 OBGyn Episode No OBEpisode recorded.
--- NOTE | 2024-06-07 17:03 | ED_ITS ---
HPI - General Adult General Chief complaint: Back Injury/Pain Stated complaint: back pain Time Seen by Provider: 06/07/24 16:28 Source: patient Mode of arrival: ambulatory Limitations: no limitations History of Present Illness HPI narrative: Female coming in today concerned about low back pain. Pain was present when she woke up this morning. She denies any traumatic or new activities. She states that the pain is located in the center of the lower back and does not radiate. She denies any pain going down to her legs. She denies any weakness of the extremities. She denies any loss of bowel or bladder control. She denies any nausea or vomiting. No fevers or chills. Movement makes the pain worse, nothing seems to make it better. She did take 400 mg of ibuprofen today which did not seem to help. She was able to go to work although she was very uncomfortable. She denies any urinary frequency or urgency. No blood in her stools or urine. Last bowel movement was this morning and it was normal. Related Data Home Medications ?Medication ?Instructions ?Recorded ?Confirmed ibuprofen 200 mg capsule 200 mg PO Q6H PRN 12/13/23 01/31/24 Allergies Allergy/AdvReac Type Severity Reaction Status Date / Time No Known Drug Allergies Allergy Verified 01/31/24 08:27 Review of Systems Status of ROS: Reports: 10 or more systems reviewed and unremarkable except as noted in History and below [facility] Medical History Irritable bowel syndrome ?K58.9 - Irritable bowel syndrome without diarrhea (ICD-10) Esophageal reflux ?K21.9 - Gastro-esophageal reflux disease without esophagitis (ICD-10) Surgical History History of carpal tunnel surgery of left wrist (11/04/23) ?Z98.890 - Other specified postprocedural states (ICD-10) History of open reduction and internal fixation (ORIF) procedure (11/04/23) ?Z98.890 - Other specified postprocedural states (ICD-10) Hx of tonsillectomy ?Z90.89 - Acquired absence of other organs (ICD-10) Hx of cholecystectomy ?Z90.49 - Acquired absence of other specified parts of digestive tract (ICD- 10) Hx of breast biopsy ?Z98.890 - Other specified postprocedural states (ICD-10) Hx of appendectomy ?Z90.49 - Acquired absence of other specified parts of digestive tract (ICD- 10) Social History Smoking Status: Current every day smoker What tobacco products do you use: cigarettes How often do you have a drink containing alcohol: monthly or less Alcohol type: beer How many standard drinks containing alcohol do you have on a typical day: 1 or 2 How often do you have six or more drinks on one occasion: Never AUDIT-C Alcohol total score: 1 Non-prescribed substance use: marijuana (any form) Caffeine: Yes Are you using contraception or practicing any form of control: No Exam Narrative: Exam Narrative: Well-nourished well-developed patient in no acute distress. Alert and oriented. Answers questions appropriately. Mood and affect are appropriate. Thoughts are goal oriented and rational. No tangential or magical thinking noted. Patient speaks in full sentences without needing to catch her breath. HEENT: Normocephalic atraumatic. Pupils are equally round reactive to light. Extraocular muscles are intact. Conjunctivae are moist without any icterus noted. Moist mucous membranes. Cardiovascular: Heart is regular rate and rhythm S1 and S2 are present without any murmurs. Lungs: Clear to auscultation bilaterally no wheezes rhonchi or rales are appreciated. Patient takes deep breaths without any discomfort. Abdomen: Soft and nontender nondistended with normal bowel sounds. No guarding or rebound. Extremities: Bilateral lower extremities are without edema. Skin: Well perfused without any obvious rashes. Back: Normal appearance. No tenderness to palpation of the thoracic or lumbar spine. No pain of the paraspinal musculature. No swelling noted. Strength is 5/5 of the lower extremities. Reflexes are 2+ and symmetric at the knees. Gait is normal. Const: Vital Signs, click to edit/add: Vital Signs - 24 hr 06/07/24 16:08 Temperature 97.4 F L Pulse Rate [Pulse Oximeter] 65 Respiratory Rate 18 Blood Pressure [Ri ght Upper Arm] 133/84 Pulse Oximetry 97 Oxygen Delivery Me thod Room Air Course Course ED Course: Patient was concerned that this could potentially be a UTI, UA was unremarkable. Vital Signs Vital signs: Initial Vital Signs Temperature 97.4 F L 06/07/24 16:08 Temperature Source Temporal Artery Scan 06/07/24 16:08 Pulse Rate 65 06/07/24 16:08 Respiratory Rate 18 06/07/24 16:08 Blood Pressure 133/84 06/07/24 16:08 Blood Pressure Mean 100 06/07/24 16:08 Pulse Oximetry 97 06/07/24 16:08 Oxygen Delivery Method Room Air 06/07/24 16:08 Vital Signs Temperature 97.4 F L 06/07/24 16:08 Pulse Rate 65 06/07/24 16:08 Respiratory Rate 18 06/07/24 16:08 Blood Pressure 133/84 06/07/24 16:08 Pulse Oximetry 97 06/07/24 16:08 Oxygen Delivery Method Room Air 06/07/24 16:08 Temperature 97.4 F L 06/07/24 16:08 Pulse Rate 65 06/07/24 16:08 Respiratory Rate 18 06/07/24 16:08 Blood Pressure 133/84 06/07/24 16:08 Pulse Oximetry 97 06/07/24 16:08 Oxygen Delivery Method Room Air 06/07/24 16:08 Medical Decision Making MDM Narrative Medical decision making narrative: 48-year-old female with low back pain. No red flags noted on today's examination or history taking. Recommended 600-800mg of ibuprofen, heat, gentle stretching. Follow up as needed. Lab Data Labs: Lab Results 06/07/24 Range/Units 16:16 Urine Color Yellow (Yellow) Urine Appearance Clear (Clear) Urine pH 7.0 (5.0-8.5) Ur Specific [place] 1.010 (1.000-1.030) Urine Protein Negative (Negative) Urine Glucose (UA) Negative (Negative) Urine Ketones Negative (Negative) Urine Blood Trace-intact A (Negative) Urine Nitrite Negative (Negative) Urine Bilirubin Negative (Negative) Urine Urobilinogen 0.2 (0.2-1.0) Ur Leukocyte Esterase Negative (Negative) Discharge Plan Discharge Clinical Impression: Low back pain Patient Disposition: Home, Self-Care Condition: Stable Additional Instructions: Your urine test was normal today. Expect your pain to last a few days and then slowly get better. Recommend 600- 800 mg of ibuprofen 3 times per day as needed. Use gentle heat to the lower back frequently, do not apply heat directly to the skin. Follow-up with your primary care provider if you are not getting better. Follow-up in the ER if you develop fevers, loss of control of bladder or bowel. Prescriptions: No Action ibuprofen 200 mg capsule 200 mg PO Q6H PRN Follow Up/Referrals: Kelly Stevens MD [Primary Care Provider] - Stand Alone Forms: [employer] Info Instructions
[2024-06-07] MEDS: KETOROLAC 60 MG/2 ML inj IM (17:30)
[2024-06-07 23:40] LABS: RBC Urine 0-2 (0-2); Squamous Epithelial Cell Urine Few (None-Few); WBC Urine 0-2 (0-5)
== END 2024-06-07 17:26 | disposition home or self-care (01) ==
PROVIDERS: Emergency Provider Family Medicine; PCP Family Medicine
DX: M54.50 Low back pain, unspecified (principal)
CPT/HCPCS: 81001; 96372; 99284; J1885

== ENCOUNTER 2024-11-13 20:01 | Emergency (ER) | payer SELFPAY ==
[2024-11-13 20:41] VITALS: BP 102/66; PULSE 101; RESP 18; TEMP 36.7; O2SAT 98; BMI 25.8
--- OUTSIDE RECORDS SUMMARY | 2024-11-14 00:22 | XMS_ITS | Clinical Summary ---
Author Organization [employer] [facility] Address [place], [place] [address] Care Team Providers Care Invoice Control Clerk Name Role Phone Kelly Stevens MD Primary Care Provider Allergies No known active allergies Medications oxyCODONE (ROXICODONE) 5 mg immediate release tablet [...] Esophageal reflux Abnormal Pap smear of cervix Overview (08/09/2019): See 07/27/19 visit note:history of abnormal, never [...] Date Smoking Tobacco: Every Day Cigarettes 0.9 35.1 Started: 1989 Smokeless Tobacco: Never Tobacco Cessation:Ready [...] Answer Date Recorded PHQ-2 Score 0 07/27/2019 [facility] - Occupational Stress [...] Paying Living Expenses Not on file 10/25/2021 Comments No Sex and Gender Information Value Date Recorded Sex Assigned at Not on file Legal Sex Female 5:41 AM ART INSTALLER Gender Identity Not on file Sexual Orientation Not on file 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 Not on file Not on file Not on file Obstetrics History Para Term AB IAB SAB Ectopic Multiple Livin g Live Births 5 5 5 5 Date Outcome GA Total Labor Labor/2nd/3rd Weight Sex Type Anes PTL Faye A1 A5 Name Clin Term Term Term Term Term Last Filed Vital Signs Vital Sign Reading Time Taken Comments Blood Pressure 138/82 11/03/2023 11:07 AM ART INSTALLER Pulse 70 11/03/2023 11:07 AM ART INSTALLER Temperature 36.7 C (98 F) 11/03/2023 11:07 AM ART INSTALLER Respiratory Rate 16 11/19/2018 9:45 AM ART INSTALLER Oxygen Saturation 97% 11/03/2023 11:07 AM ART INSTALLER Inhaled Oxygen Concentration - - Weight 91.2 kg (201 lb) 11/03/2023 11:07 AM ART INSTALLER Height 168.9 cm (5' 6.5) 11/03/2023 11:07 AM CS T Body Mass Index 31.96 11/03/2023 11:07 AM ART INSTALLER Plan of Treatment Health Maintenance Due Date Last Done Comments HIV for age 15-65 1989 Hepatitis C screening for ag e 18-79 1992 Pneumococcal series for age 50+ (1 of 2 - PCV) 1993 Colonoscopy through age 75 2019 Mammogram for age 45-75 2019 Depression screening for age 12+ 07/27/2020 07/27/20 19 Pap test for age 21-65 07/27/2022 07/27/2019, 2018 COVID-19 vaccine series ( season) 2024 Lipids for age 45-75 07/27/2024 07/27/2019, 11/21/2013, 10/23/2013, Additional history exists Influenza for age 50-64 2024 08/25/20 13, 08/18/2012, 08/18/2011, Additional history exists Zoster (shingles) series for age 50+ (1 of 2) 2024 BMI (ht and wt on same day) for age 18+ 11/03/2024 11/03/2023, 07/27/2019, 11/19/2018, Additional history exists Tetanus booster 07/27/2029 07/27/2019, 02/23/2000 Tdap Completed 07/27/2019 Procedures Procedure Name Priority Date/Time Associated Diagnosis Comments LIPID PANEL W REFLEX MEASURED LDL Routine 07/27/2019 12:42 PM CDT Lipid screening COREMAKER BENCH THIN PREP PAP SCREEN IMAGED Routine 07/27/2019 11:50 AM CDT Screening for malignant neoplasm of cervix from Last 3 Months or Most Recently Relevant to Health Maintenance Results * (ABNORMAL) LIPID PANEL W REFLEX MEASURED LDL (07/27/2019 12:42 PM CDT) CHOLESTEROL,TOTAL 199 100 - 199 mg/dL 07/27/2019 9:25 PM CDT [facility] TRIGLYCERIDES 127 <150 mg/dL 07/27/2019 9:25 PM CDT [facility] HDL CHOLESTEROL 42 >40 mg/dL 9 9:25 PM CDT [facility] NON-HDL CHOLESTEROL 157(H) <145 mg/dl 07/27/2019 9:25 PM CDT [facility] CHOL/HDL RATIO 4.74(H) <4.50 07/27/2019 9:25 PM CDT [facility] LDL CHOLESTEROL 132(H) <=130 mg/dL 07/27/2019 9:25 PM CDT [facility] PROVIDER ORDERED STATUS RANDOM 07/27/2019 9:25 PM CDT [facility] Blood BLOOD SPECIMEN / Unknown Venipuncture / Unknown 07/27/2019 12:42 PM CDT 07/27/2019 12:46 PM CDT us Kelly Stevens MD CHEMISTRY Final R esult [facility] [address] [place] [address], [place] * COREMAKER BENCH THIN PREP PAP SCREEN IMAGED [[id number]] (07/27/2019 11:50 AM CDT) Case Report Gynecologic Cytology Report Case: [id number] Authorizing Provider: Kelly Stevens MD Collected: 07/27/2019 1150 Ordering Location: [facility] Received: 07/27/2019 1205 Clinic First Screen: Brunilda Torres Rescreen: Gricel Castañeda Specimen: COREMAKER BENCH ThinPrep Vial Screening, Cervical 08/08/2019 11:39 AM CDT [facility]TRAL LABORATORY INTERPRETATION/ RESULT NEGATIVE FOR INTRAEPITHELIAL LESION OR MALIGNANCY (NIL) (none) 08/08/2019 11:39 AM CDT [email or web address] ENTRAL LABORATORY IMEN ADEQUACY Satisfactory for evaluation Endocervical component present 08/08/2019 11:39 AM CDT [facility] LAB[facility] HPV REQUEST HPV and PAP 08/08/2019 11:39 AM CDT [facility] Date of LMP n/a 08/08/2019 11:39 AM CDT [facility] Last Pap Date yrs ago 08/08/2019 11:39 AM CDT [facility] Last Pap Result First Pap/Unknown 11:39 AM CDT [facility] Abnormal Pap or [place] Bx in last 5 years Yes 08/08/2019 11:39 AM CDT [facility] Menstrual Status Ablation 08/08/2019 11:39 AM CDT [facility] [place] Bx Done Today No 08/08/2019 11:39 AM CDT [facility] Additional Information None given 08/08/2019 11:39 AM CDT [facility] Automated Review Successful 08/08/2019 11:39 AM CDT [facility] Comment:Specimen processed s uccessfully by automated casket assembler metal device, [employer] Mobile[employer] Imaging System, [employer] ANCILLARY TESTING COREMAKER BENCH HPV Ordered, Please see separate report 08/08/2019 11:39 AM CDT [facility] Note The pap test is a screening technique, not a diagnostic procedure. It is used primarily to screen for squamous cancers and precursor lesions. Published studies have shown that it is subject to both false negative and false positive results. The pap test should not be used as the sole means to diagnose or exclude pre-malignant and malignant lesions. Cytology is screened and interpreted at [facility], [facility] - [address], [place] [address] and [facility] - [address] [place] [address]; [place] [address] and [facility] - [address]; [place] [address] and [facility] [address]; [place] [address] 08/08/2019 11:39 AM CDT [facility] Other (Cervical) Non-Blood / Unknown 07/27/2019 11:50 AM CDT 07/27/2019 12:05 PM CDT us Kelly Stevens MD PATHOLOGY/CYTOLOGY Jayda vigil Result [facility] [address] [place] [address], from Last 3 Months or Most Recently Relevant to [place] [address] [place] [id number] [facility] Care Teams Invoice Control Clerk Relationship Specialty Start Date End Date Kelly [place] [address] PCP - General Family Practice 06/27/13
--- OUTSIDE RECORDS SUMMARY | 2024-11-14 00:22 | XMS_ITS | Continuity of Care Document ---
Author Name NwMALENAN User MariMN-a llowed Address Unknown Organization Unknown Address Unknown Procedures FILTER APPLIED:Only known Procedures with Onset Date within the last 5 years Procedure Date Procedure Provider Additional Inform ation Status THERAPEUTIC EXERCISES (77973) Completed MANUAL THERAPY 1/> REGIONS (81300) Completed THERAPEUTIC ACTIVITIES (15038) Completed OT EVAL LOW COMPLEX 30 MIN (88740) Completed URINE TEST (72350) Completed FLUOROSCOPY <1 HR PHYS/QHP (91474) Completed X-RAY EXAM OF WRIST (31611) Completed ANESTH LOWER ARM SURGERY (21516) Completed NEUROPLASTY AND/TRANSPOS MEDIAN NRV CARPAL TUNNE (46588) Completed OPEN TREATMENT OF DISTAL RADIAL INTRA-ARTICULAR FRACTURE OR EPIPHYSEAL SEPARATION (41966) Completed ECHO GUIDE FOR BIOPSY (67214) Completed APPLY FOREARM SPLINT (58876) Completed THER/PROPH/DIAG INJ IV PUSH (93822) Completed X-RAY EXAM OF WRIST (28080) Completed EMERGENCY DEPT VISIT LOW MDM (23921) Completed Encounters FILTER APPLIED:Only known Encounters with Admission Date within the last 5 years Encounter Location Admission Discharge Billing Code Robotics Technologist Souleymane silver Emergency Blane Cronin Outpatient [facility] on Jorge Outpatient Antonia Fischer
== END 2024-11-13 21:22 | disposition left against medical advice (07) ==
PROVIDERS: PCP Family Medicine
DX: Z53.21 Procedure and treatment not carried out due to patient leaving prior to being seen by health care provider (principal)

== ENCOUNTER 2025-04-23 16:56 | Emergency (ER) | payer BC, OTHER, SELFPAY ==
[2025-04-23] VITALS (10 sets, daily range): BP systolic 103–168; BP diastolic 85–93; PULSE 77–97; RESP 10–24; TEMP 36.4; O2SAT 96–99; BMI 24.2
--- OUTSIDE RECORDS SUMMARY | 2025-04-23 17:00 | XMS_ITS | Clinical Summary ---
Author Organization [employer] [facility] Address [address] [place] [id number] Care Team Providers Care Recreational Vehicle Resort Manager Name Role Phone Kelly Stevens MD Primary Care Provider Allergies No known active allergies Medications oxyCODONE (ROXICODONE) 5 mg immediate release tablet Take 5 mg by mouth every 4 hours if needed for Pain. 4 Active albuterol-ipratro pium (DUONEB) (2.5-0.5 mg) in 3 mL NEBULIZATION solutionIndicatio ns:Atypical pneumonia Inhale 3 mL via a nebulizer every 6 hours if needed for Shortness Of Breath or Wheezing. 180 mL 5 Active nebulizer accessories kitIndications:At ypical pneumonia For home use. Length of need: 99 1 Kit 5 Active Active Problems Problem Noted Date Diagnosed Date Indigestion 11/20/2024 Fracture of wrist 11/03/2023 Heart murmur 11/03/2023 Prediabetes 11/03/2023 Elevated blood pressure read ing without diagnosis of hypertension 11/03/2023 Tobacco user 11/03/2023 Cystic acne 05/26/2013 Unspecified episodic mood disorder 09/02/2007 Obsessive-compulsive disorders 09/02/2007 Esophageal reflux Abnormal Pap smear of cervix Overview (08/09/2019): See 07/27/19 visit note:history of abnormal, never follow up for LEEP 07/27/19 NIL/HPV negative Plan:Pap/HPV due 07/2022 Resolved Problems Problem Noted Date Diagnosed Date Resolved Date Community acquired pneumonia 11/20/2024 11/20/2024 Hematuria 11/20/2024 11/20/2024 Flank pain 11/20/2024 11/20/2024 Low back pain 11/20/2024 11/20/2024 History of open reduction an d internal fixation (ORIF) procedure 11/04/2023 11/20/2024 Overview (11/20/2024): Open reduction internal fixation-Angulated 2+ part intra-articular left upper extremity distal radius fracture (Dr. Patel, 11/04/2023) Immunizations Immunization Administration Dates Next Due Influenza A (H1N1), [...] Date Smoking Tobacco: Every Day Cigarettes 0.9 35.5 Started: 1989 Smokeless Tobacco: Never Tobacco Cessation:Ready [...] Answer Date Recorded PHQ-2 Score 0 07/27/2019 [facility] Occupat ional Health - Occupational Stress Questionnaire Answer Date Recorded Feeling of Stress Not at all 07/27/2019 Exercise Vital Sign Answer Date Recorde d Days of Exercise per Week 3 days 2018 Minutes of Exercise per Session 40 min 07/27/2019 Social Connections Answer Date Recorded Do you often feel lonely or isolated from those around you? 0 11/20/2024 Financial Resource Strain Answer Date R ecorded Difficulty of Paying Living Expenses 3 11/20/2024 Difficulty of Paying Living Expenses Not on file 11/20/2024 Food Insecurity Answer Date Recorded Do you worry your food will run out before you are able to buy more? 1 11/20/2024 Transportation Needs Answer Date Record ed Does lack of transportation keep you from medica l appointments? 1 11/20/2024 Does lack of transportation keep you from work, meetings or getting things that you need? 1 11/20/2024 Housing Stability Answer Date Recorded What is your housing situation today? 1 11/20/2024 Utilities Answer Date Recorded Do you have trouble paying f or utilities (for example, heat, electricity, water, phone)? 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 Not on file Not on file Not on file Obstetrics History Para Term AB IAB SAB Ectopic Multiple Livin g Live Births 5 5 5 5 Date Outcome GA Total Labor Labor/2nd/3rd Weight Sex Type Anes PTL Faye A1 A5 Name Clin Term Term Term Term Term Last Filed Vital Signs Vital Sign Reading Time Taken Comments Blood Pressure 160/88 11/20/2024 4:53 PM REMITTANCE CLERK Pulse 78 11/20/2024 4:53 PM REMITTANCE CLERK Temperature 36.8 C (98.3 F) 11/20/2024 4:53 PM REMITTANCE CLERK Respiratory Rate 16 11/20/2024 4:53 PM REMITTANCE CLERK Oxygen Saturation 97% 11/20/2024 4:53 PM REMITTANCE CLERK Inhaled Oxygen Concentration - - Weight 91.2 kg (201 lb) 11/03/2023 11:07 AM REMITTANCE CLERK Height 168.9 cm (5' 6.5) 11/03/2023 11:07 AM CS T Body Mass Index 31.96 11/03/2023 11:07 AM REMITTANCE CLERK Plan of Treatment Upcoming Encounters Date Type Department Care Team (Late st Contact Info) Description 05/09/2025 8:00 AM CDT Office Visit [facility] [address] [place] [address] Kelly Stevens MD [address] [place] [address] Health Maintenance Due Date Last Done Comments HIV for age 15-65 1989 Hepatitis C screening for ag e 18-79 1992 Hepatitis B series for 19+ ( 1 of 3 - 19+ 3-dose series) 1993 Pneumococcal series for age 50+ (1 of 2 - PCV) 1993 Colonoscopy through age 75 2019 Mammogram for age 45-75 2019 Depression screening for age 12+ 07/27/2020 07/27/20 19 Pap test for age 21-65 07/27/2022 07/27/2019, 2018 COVID-19 vaccine series (2023- season) 2024 Lipids for age 45-75 07/27/2024 07/27/2019, 11/21/2013, 10/23/2013, Additional history exists Zoster (shingles) series for age 50+ (1 of 2) 2024 BMI (ht and wt on same day) for age 18+ 11/03/2024 11/03/2023, 07/27/2019, 11/19/2018, Additional history exists Influenza Vaccine (Season Ended) 2025 08/25/2013, 08/18/2012, 08/18/2011 Tetanus booster 07/27/2029 07/27/2019, 02/23/2000 Tdap Completed 07/27/2019 Procedures Procedure Name Priority Date/Time Associated Diagnosis Comments LIPID PANEL W REFLEX MEASURED LDL Routine 07/27/2019 12:42 PM CDT Lipid screening PRODUCTION STAGE MANAGER THIN PREP PAP SCREEN IMAGED Routine 07/27/2019 11:50 AM CDT Screening for malignant neoplasm of cervix from Last 3 Months or Most Recently Relevant to Health Maintenance Results * (ABNORMAL) LIPID PANEL W REFLEX MEASURED LDL (07/27/2019 12:42 PM CDT) CHOLESTEROL,TOTAL 199 100 - 199 mg/dL 07/27/2019 9:25 PM CDT [facility] TRIGLYCERIDES 127 <150 mg/dL 07/27/2019 9:25 PM CDT [facility] HDL CHOLESTEROL 42 >40 mg/dL 9 9:25 PM CDT [facility] NON-HDL CHOLESTEROL 157(H) <145 mg/dl 07/27/2019 9:25 PM CDT [facility] CHOL/HDL RATIO 4.74(H) <4.50 07/27/2019 9:25 PM CDT [facility] LDL CHOLESTEROL 132(H) <=130 mg/dL 07/27/2019 9:25 PM CDT [facility] PROVIDER ORDERED STATUS RANDOM 07/27/2019 9:25 PM CDT [facility] Blood BLOOD SPECIMEN / Unknown Venipuncture / Unknown 07/27/2019 12:42 PM CDT 07/27/2019 12:46 PM CDT us Kelly Stevens MD CHEMISTRY Final R esult [facility] [address] [place] [address], [place] * PRODUCTION STAGE MANAGER THIN PREP PAP SCREEN IMAGED [[id number]] (07/27/2019 11:50 AM CDT) Case Report Gynecologic Cytology Report Case: [id number] Authorizing Provider: Kelly Stevens MD Collected: 07/27/2019 1150 Ordering Location: [facility] Received: 07/27/2019 1205 Clinic First Screen: Brunilda Torres Rescreen: Gricel Castañeda Specimen: PRODUCTION STAGE MANAGER ThinPrep Vial Screening, Cervical 08/08/2019 11:39 AM CDT [facility]TRAL LABORATORY INTERPRETATION/ RESULT NEGATIVE FOR INTRAEPITHELIAL LESION OR MALIGNANCY (NIL) (none) 08/08/2019 11:39 AM CDT [facility]TR[facility] LAB[facility]ATORY at 1139 CDT SPECIMEN ADEQUACY Satisfactory for evaluation Endocervical component present 08/08/2019 11:39 AM CDT [facility] LAB[facility] HPV REQUEST HPV and PAP 08/08/2019 11:39 AM CDT [facility] Date of LMP n/a 08/08/2019 11:39 AM CDT [facility] Last Pap Date yrs ago 08/08/2019 11:39 AM CDT [facility] Last Pap Result First Pap/Unknown 11:39 AM CDT [facility] Abnormal Pap or [place] Bx in last 5 years Yes 08/08/2019 11:39 AM CDT [facility] Menstrual Status Ablation 08/08/2019 11:39 AM CDT [facility] [place] Bx Done Today No 08/08/2019 11:39 AM CDT [facility] Additional Information None given 08/08/2019 11:39 AM CDT [facility] Automated Review Successful 08/08/2019 11:39 AM CDT [facility] Comment:Specimen processed s uccessfully by automated electrical and instrumentation manager device, [employer] Technologies[employer] Imaging System, [employer] ANCILLARY TESTING PRODUCTION STAGE MANAGER HPV Ordered, Please see separate report 08/08/2019 11:39 AM CDT [facility] Note The pap test is a [...] lesions. Cytology is screened and interpreted at [facility], [facility] Laboratory - [address], [place] [address] and [facility] - [address]; [place] [address] and [facility] - [address]; [place] [address] and [facility] [address]; [place] [address] 08/08/2019 11:39 AM CDT [facility] Other (Cervical) Non-Blood / Unknown 07/27/2019 11:50 AM CDT 07/27/2019 12:05 PM CDT Kelly Stevens MD PATHOLOGY/CYTOLOGY Jayda vigil Result [facility] [address] [place] [address], [place] from Last 3 Months or Most Recently Relevant to Health Maintenance Care Teams Recreational Vehicle Resort Manager Relationship Specialty Start Date End Date Kelly Stevens MD [address] [place] [address] PCP - General Family Practice 06/27/13
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
--- NOTE | 2025-04-23 17:43 | CRLHL7_ITS ---
For Patients: As a result of the Century Cures Act, medical imaging exams and procedure reports are released immediately into your electronic medical record. You may view this report before your referring provider. If you have questions, please contact your health care provider. INDICATION: Chest tightness TECHNIQUE: Chest radiograph 1 view COMPARISON: None FINDINGS: The sensitivity and specificity of the exam are moderately limited by the patient`s body habitus. Mediastinum: The mediastinum is normal in appearance. The heart silhouette is normal in size and morphology. Lung: Both lungs are unremarkable in appearance. No sign of pleural effusion seen. No pneumothorax is identified. Bone and Soft tissue: Unremarkable for age. IMPRESSION: 1. No acute cardiopulmonary disease is seen. Dictated by: Akhil Camacho MD @ 04/23/2025 18:07:08 (Electronically Signed)
[2025-04-23 17:50] LABS: Lactate* 0.9 mmol/L (0.5-1.9)
[2025-04-23 17:54] LABS: Basophils Absolute Auto 0.04 K/uL (0.00-0.30); Basophils Percent Auto 0.5 % (0.0-3.0); Eosinophils Absolute Auto 0.11 K/uL (0.00-0.50); Eosinophils Percent Auto 1.3 % (0.0-7.0); Hemoglobin* 15.6 gm/dL (12.0-16.0); Immature Granulocytes Abs Auto 0.02 K/uL (0.00-0.30); Immature Granulocytes Pct Auto 0.2 %; Lymphocytes Absolute Auto 2.79 K/uL (0.90-2.90); Lymphocytes Percent Auto 34.1 % (20-44); Mean Corpuscular HGB Conc 33 gm/dL (32-36); Mean Corpuscular Hemoglobin 30 pg (26-34); Mean Corpuscular Volume 93 fL (80-100); Monocytes Percent Auto 8.1 % (0.0-11.0); Neutrophils Absolute Auto 4.55 K/uL (1.7-7.0); Neutrophils Percent Auto 55.8 % (42.0-72.0); Platelet Count* 189 K/uL (140-440); RDW Coefficient of Variation % 13.4 % (11.5-15.5); Red Blood Count 5.14 m/uL (4.00-5.20); White Blood Count* 8.17 K/uL (4.50-11.00)
[2025-04-23 18:02] LABS: Slide Review Reflex No
[2025-04-23 18:11] LABS: Albumin* 4.3 g/dL (3.3-5.0); Chloride* 104 mmol/L (96-114)
[2025-04-23 18:12] LABS: Potassium* 3.6 mmol/L (3.6-5.1); Sodium* 138 mmol/L (135-149)
[2025-04-23 18:13] LABS: D Dimer Quantitative* 1.29 ug/ml (0.00-0.50)
[2025-04-23 18:14] LABS: Alanine Aminotransferase* 14 U/L (4-35); Aspartate Amino Transferase* 26 U/L (12-35); Blood Urea Nitrogen* 13 mg/dL (7-30); Creatinine* 0.9 mg/dL (0.5-1.5); Est. Creatinine Clearance* 70.01; Estimated Glomerular Filt Rate 78 ml/min
[2025-04-23 18:15] LABS: Alkaline Phosphatase* 74 U/L (40-150); Anion Gap 10 mEq/L (7-15); Bilirubin Total* 0.6 mg/dL (0.1-1.5); Calcium* 9.3 mg/dL (8.4-10.6); Carbon Dioxide* 24 mmol/L (20-32); Glucose* 108 mg/dL (60-115); Lipase* 131 U/L (23-300); Total Protein* 7.6 g/dL (6.0-8.3)
[2025-04-23 18:18] LABS: C Reactive Protein* 0.5 mg/dL (0.5-1.0)
[2025-04-23 18:18] LABS: Appearance Urine Clear (Clear); Bilirubin Urine Negative (Negative); Blood Urine 1+ (Negative); Color Urine Dark yellow (Yellow); Glucose Urine Negative (Negative); Ketones Urine Negative (Negative); Leukocyte Esterase Urine Negative (Negative); Nitrite Urine Negative (Negative); Protein Urine Negative (Negative); Specific Gravity Urine 1.025 (1.000-1.030); Urobilinogen Urine 0.2 (0.2-1.0); pH Urine 5.5 (5.0-8.5)
[2025-04-23 18:28] LABS: NT Pro B Type NatriureticPept* 34 pg/mL (See Note); Troponin I* < 0.01 ng/mL (0.01-0.04)
--- NOTE | 2025-04-23 18:39 | CRLHL7_ITS ---
For Patients: As a result of the Century Cures Act, medical imaging exams and procedure reports are released immediately into your electronic medical record. You may view this report before your referring provider. If you have questions, please contact your health care provider. Indication: Chest pain, elevated D-dimer Technique: Postcontrast CTA of the chest following 95 mL Isovue 370 IV contrast. Axial MIP images obtained. Comparison: None Findings: Pulmonary arteries: No pulmonary embolism appreciated. Lungs: No consolidation. No effusion. No pneumothorax. Mild apical predominant emphysema. Mild basilar atelectasis and/or scarring. Few scattered pulmonary nodules noted, largest measuring 5 millimeters in the left lower lobe. Mediastinum: No acute abnormality appreciated. Lymph nodes: Solitary enlarged right hilar node measures 13 millimeters. Upper abdomen: Cholecystectomy. Soft tissues: Bilateral breast implants. Bones: No acute abnormality appreciated. Impression: 1. No pulmonary embolism appreciated. 2. Enlarged right hilar node measures 13 millimeters, clinical significance uncertain. Attention on follow-up imaging recommended. 3. Scattered pulmonary nodules measure up to [address] millimeters. Follow-up CT in 12 months recommended. 4. Mild upper lobe predominant emphysema. Please note that all CT scans at this facility use dose modulation, iterative reconstruction, and/or weight-based dosing when appropriate to reduce radiation dose to as low as reasonably achievable. Dictated by Eugenio De La Fuente MD @ 04/23/2025 7:34:31 PM (Electronically Signed)
[2025-04-23 18:45] LABS: RBC Urine 0-2 (0-2); WBC Urine 0-2 (0-5)
[2025-04-23 18:46] LABS: Squamous Epithelial Cell Urine Few (None-Few)
== END 2025-04-23 20:21 | disposition home or self-care (01) ==
PROVIDERS: Emergency Provider Family Medicine; PCP Family Medicine
DX: R07.89 Other chest pain (principal); R91.1 Solitary pulmonary nodule
CPT/HCPCS: 36415; 71045; 71275; 80053; 81001; 83605; 83690; 83735; 83880; 84484; 85025; 85379; 86140; 93005; 94761; 99285; Q9967